=== PATIENT | female | born 1955 | race Caucasian/White ===

== ENCOUNTER → 2017-07-12 | Outpatient (REF) ==
[~2017-07-12] MED LIST: CEP500 PO; CEPH500T7 PO; FLUT16SP19; HYDR-317 PO; IBU200 PO; ICOS1CAP PO; LACT1CAP6 PO; LEVO88TA45 PO; MULT1TAB64 PO; PER PO; SIMV5TAB60 PO; TAM4 PO
[2017-07-12 09:02] LABS: LDL CHOLESTEROL 89 mg/dl
== END ==
DX: Z02.9 Encounter for administrative examinations, unspecified (principal)

== ENCOUNTER → 2017-07-12 | Outpatient (CLI) | payer OTHER | LOC: LAB 07:58 | PROVIDERS: ATTEND Family Medicine | DX: R53.83 Other fatigue (principal); F41.1 Generalized anxiety disorder; F43.9 Reaction to severe stress, unspecified | CPT/HCPCS: 82533 ==

== ENCOUNTER 2017-08-21 08:15 | Outpatient (RCR) | payer OTHER ==
--- NOTE | 2017-08-03 11:55 | PT INITIAL EVALUATION ---
MEDICAL DIAGNOSIS: low back pain with radiating pain down L LE TREATMENT DIAGNOSIS: same DATE OF ONSET: 07/20/17 SUBJECTIVE: Sofía Cifuentes presents to physical therapy with complaints of low back pain associated with radiating pain down her L LE. She reports that the pain is associated with numbness and tingling down into the L LE and end at the L knee. She reports that the pain started approximately 2 weeks ago due to increased sitting. She reports that she is required to sit from approximately 6 -7 hours per an 8 hour work day with an old work chair. She reports that the pain feels worse with sitting and bending and feels better with standing, walking, and lying. She rates her current pain to be 2-3/10 in the low back region with numbness and tingling going down the L LE into the knee. She reports that by the end of the day (after a lot of sitting) she rates her pain to be 9-10/10 with intensified pain going down the L LE. She reports normal gait and bladder. She denies any unexplained weight loss. Furthermore, she reports that she did not have any accident, imaging, or a recent surgery. Pain location is L 4-5 facet joints and described as achy. Pain scale is 3 on a ten point pain scale. REHAB PROBLEM LIST: Increased Pain Decreased ROM Decreased Strength Decreased Endurance Decreased Function PREVIOUS MEDICAL HISTORY: See EMR OCCUPATION: IMH: LAB OBJECTIVE: Posture: She demonstrates great posture since the back becomes worse with a slouched posture ROM: Trunk AROM: flexion: minimal restriction with end range pain. extension: NIL with end range pain. R/L sidegliding: moderate restriction with end range pain. Strength: L hip flexion: 4/5. R hip flexion: 5/5. B hip abduction, adduction, B knee flexion and extension, and B ankle DF and PF: 5/5 Palpation: TTP: L side: L4-5 facet joints Special Tests: Repeated extension in lying: strain during the test and abolished pain following the test. ASSESSMENT: Sofía will benefit from skilled physical therapy to address the listed impairments to improve function and QOL. Her provisional classification is a posterior derangement that responded well to extension based principles that has an excellent prognosis. Short Term Goals 1 week: Pt will be independent on her specific exercise and postural mechanics to improve function and QOL. 2 weeks: Pt will demonstrate centralized low back pain to improve function and QOL. 4 weeks: Pt will demonstrate abolished low back pain and return to prior level of function to improve function and QOL. Patient's Goals abolish low back pain PLAN: Patient to be seen for Manual Therapy/STM/MET Strengthening/condition Range of Motion Spinal Stabilization Work Hardening/Cond Stretching Neuromuscular Re-ed Closed Chain Program Posture/Body mechanics Home Exercise Program Therapeutic Activities 2x/Week for 4 Weeks If you have any questions, comments, or concerns about this report or plan, please contact me at . Thank you, Juwan Leal, PT, DPT MTDD
--- NOTE | 2017-08-21 08:45 | PT PLAN OF CARE ---
Physician: Neda Srinivasan DO Patient is being seen: 1-2x/week Therapist: Juwan Leal, PT, DPT Medical Diagnosis: low back pain with radiating pain down L LE Treatment Diagnosis: same Date of Onset: 07/20/17 Date of Initial Evaluation: 08/03/17 Date patient was last seen: 08/21/17 Number of treatments: 6 Number of cancellations/No shows: 0 INTERVENTIONS: Manual Therapy/STM/MET Strengthening/condition Range of Motion Spinal Stabilization Work Hardening/Cond Stretching Neuromuscular Re-ed Closed Chain Program Posture/Body mechanics Home Exercise Program Therapeutic Activities GOALS: 1 week: Pt will be independent on her specific exercise and postural mechanics to improve function and QOL. MET 2 weeks: Pt will demonstrate centralized low back pain to improve function and QOL. MET 4 weeks: Pt will demonstrate abolished low back pain and return to prior level of function to improve function and QOL. MET PATIENT'S GOAL: abolish low back pain Status of Patient's Goals: MET Patient Compliance: Excellent Prognosis: Excellent Reasons for continuing therapy: This is a discharge note for Sofía Cifuentes. She reports that she is doing well. She reports that her pain has completely resolved and has returned to prior level of function. She demonstrated full trunk AROM with normal end feels, return to prior level of function, and return to full core and B LE strength. She has met all of her goals. As a result, she will be discharged from formal PT to [facility]. Posture: She demonstrates great posture ROM: Trunk AROM: flexion: NIL with normal rang without pain. extension: NIL with normal end feel. R/L sidegliding: NIL with normal end feel. Strength: L hip flexion: 5/5. R hip flexion: 5/5. B hip abduction, adduction, B knee flexion and extension, and B ankle DF and PF: 5/5 Special Tests: Repeated extension in lying: strain during the test and abolished pain following the test. If you have any questions, please contact me at [phone]. Thank you, Juwan Leal, PT, DPT [facility]
== END 2017-08-21 15:04 | disposition home or self-care (01) ==
LOC: PT 08:15
PROVIDERS: ATTEND Family Medicine
DX: M54.5 Low back pain (principal)
CPT/HCPCS: 97161

== ENCOUNTER 2017-09-18 21:16 | Emergency (ER) | payer OTHER ==
[2017-09-18 21:19] VITALS: BP 142/89
[2017-09-18] MEDS ORDERED: SIMV-49 PO (21:24)
--- NOTE | 2017-09-18 21:27 | ER Report ---
History and Physical Time Seen By MD: 21:27 Hx. of Stated Complaint: CUT LEFT THUMB, HPI/ROS CHIEF COMPLAINT: Thumb laceration HISTORY OF PRESENT ILLNESS: 61-year-old female patient presents to emergency room with complaint of laceration to the left thumb. Patient states that she was cutting watermelon when the knife slipped and cut her thumb. Patient denies any numbness or tingling. She denies any weakness with thumb. Patient has not taken any medication for this. Patient is unsure of her last tetanus. Allergies: Coded Allergies: Sulfa (Sulfonamide Antibiotics) (Verified Allergy, Mild, Hives and itching , 09/18/17) Home Meds Active Scripts Cephalexin 500 Mg Tab (KEFLEX 500 MG TAB) 500 Mg Tablet, 500 MG PO Q6H, #18 TAB Prov:CONCEPCION LY 09/18/17 Reported Medications Simvastatin (SIMVASTATIN) 20 Mg Tablet, 20 MG PO HS, TAB 09/18/17 Multivitamin (MULTI VITAMIN DAILY) 1 Each Tablet, 1 EACH PO DAILY 04/16/15 Levothyroxine Sodium (LEVOTHYROXINE SODIUM) 88 Mcg Tablet, 88 MCG PO QDAY 04/16/15 Discontinued Reported Medications Lactobacillus Combination No.4 (PROBIOTIC) 1 Each Capsule, 1 EACH PO DAILY, CAPSULE 04/16/15 Icosapent Ethyl (VASCEPA) 1 Gm Capsule, 2 TAB PO DAILY, CAPSULE 04/16/15 Discontinued Scripts Fluticasone Prop 50 Mcg Ns (FLONASE 50 MCG NS) 16 Gm [place].susp, 2 SPRAYS NA QDAY for 30 Days, #1 BOT 6 Refills Prov:MAGGIE NUNO JR, MD 01/17/17 Past Medical/Surgical History Patient has a past medical history of hyperlipidemia, frequent UTI, cyst on finger, dislocated toe, back pain, hypothyroidism. Patient has surgical history of hysterectomy, tubal ligation, toe pinning. Reviewed Nurses Notes: Yes Hx Smoking: Yes (1PPD X 20 YRS) Smoking Status: Former Smoker Hx Substance Use Disorder: No Hx Alcohol Use: No Constitutional Vital Sign - Last 24 Hours 09/18/17 21:19 Pulse 65 Resp 14 B/P (MAP) 142/89 Pulse Ox 93 O2 Delivery Room Air Physical Exam General appearance: Alert no distress. Respiratory: Chest is non tender, lungs are clear to auscultation. Cardiac: Regular rate and rhythm. Skin: Patient has a laceration at the lateral proximal and of her left first digit. Patient has no signs of infection, bleeding is controlled at this time. DIFFERENTIAL DIAGNOSIS: After history and physical exam differential diagnosis was considered for laceration. Medical Decision Making ED Course/Re-evaluation ED Course Patient is admitted and examined, history and physical were obtained. Differential diagnoses were considered. On examination patient has a 0.5 cm laceration to the proximal lateral and of the first finger nail. There is no active bleeding at this time. The area was cleaned and repaired described below. Patient did receive a tetanus shot here. We will go ahead and discharge patient home. We will place her on Keflex as this is a dirty wound. She is follow-up with her primary care provider with any concerns. I informed her to leave the blue load until the glue itself came off. Patient verbalized understanding and agreement with plan. Procedure: Laceration repair with Dermabond Verbal consent was obtained from the patient. The 0.5 cm laceration on the left thumb. The wound was scrubbed and explored to its base with a gloved finger. There were no deep structures involved. No tendon injury was identified. The wound was repaired with Dermabond. The procedure was performed by myself. Decision to Disposition Date: September 18, 2017 Decision to Disposition Time: 21:53 Depart Departure Latest Vital Signs Vital Signs Date Time Temp Pulse Resp B/P (MAP) Pulse Ox O2 Delivery O2 Flow Rate FiO2 09/18/17 21:19 65 14 142/89 93 Room Air Impression: Primary Impression: Laceration Condition: Improved Disposition: HOME OR SELF-CARE Referrals: LAILA FAIR DO (PCP) New Scripts Cephalexin 500 Mg Tab (KEFLEX 500 MG TAB) 500 Mg Tablet 500 MG PO Q6H, #18 TAB Prov: CONCEPCION LY 09/18/17 Patient Instructions: Finger Laceration (ED) Additional Instructions: Follow up with your primary care provider in the next week with any concerns. Monitor for signs of infection; redness, swelling, heat, discharge, increasing pain or red streaking. Take Tylenol or Ibuprofen as needed for pain. Return to the ER with any concerns. Leave glue on and allow it to fall off on its own. CONCEPCION LY September 18, 2017 21:27
[2017-09-18] MEDS ORDERED: DIPHTH/TETANUS/ACEL. PERTUSSIS IM ONLY ONE (21:40)
[2017-09-18] MEDS ORDERED: OCTYL CYANOACRYLATE 1 APP APPL TP ONE (21:40)
[2017-09-18] MEDS ORDERED: CEPH500T7 PO (21:54)
[2017-09-18] MEDS ORDERED: CEPHALEXIN 500 MG CAP TH 2 CAP/BOTTLE PO ONE (21:55)
== END 2017-09-18 22:06 | disposition home or self-care (01) ==
LOC: ER 21:38
DX: S61.012A Laceration without foreign body of left thumb without damage to nail, initial encounter (principal); W26.0XXA Contact with knife, initial encounter
CPT/HCPCS: 90471; 90715; 99282

== ENCOUNTER → 2017-09-28 | Outpatient (CLI) | payer OTHER ==
[~2017-09-28] MED LIST changes: +SIMV-49 PO
[2017-09-28 09:15] LABS: PLATELET COUNT, AUTOMATED 239 K/uL (150-450)
== END ==
LOC: LAB 08:36
PROVIDERS: ATTEND Family Medicine
DX: R53.83 Other fatigue (principal)
CPT/HCPCS: 36415; 84443; 85025

== ENCOUNTER → 2018-02-12 | Outpatient (CLI) | payer OTHER ==
[~2018-02-12] MED LIST changes: +FLUT16SP19 NS
--- NOTE | 2018-02-12 13:48 | RADIOLOGY IMAGING REPORT ---
[place] [facility] [place] Sofía Cifuentes : 1955 MR: [id number] V: [id number] EXAM DATE: ORDERING PHYSICIAN: LAILA FAIR TECHNOLOGIST: Location: [facility] [place] Patient: Sofía Cifuentes : 1955 Visit/Account:[id number] Date of Sevice: 02/12/2018 BONE MINERAL DENSITY HISTORY: Osteopenia COMPARISON: DEXA examination of March 2013 FINDINGS: LUMBAR SPINE: Bone mineral density (BMD) measured from L1-L4 correlates with a Z-score of -0.5 and a T-score of -1. 8 which is osteopenia as defined by the World Health Organization. The corresponding risk of fractur e in the lumbar spine is 3-4 times compared with a young adult reference population. This value has decreased by 6.6% since the prior study. More than 5% change is considered significant. HIP: Bone mineral density (BMD) measured in the left total hip region correlates with a Z-score of 0.8 and a T-score of -0.1 which is normal as defined by the World Health Organization. The corresponding ri sk of fracture in the hip is not increased compared with a young adult reference population. This va lue has decreased by 4% since the prior study. More than 5% change is considered significant. Bone mineral density (BMD) measured in the left Femoral Neck region measures 1.013 g/cm2. T score is -0.2, normal. No evidence of increased risk. No change since prior exam IMPRESSION: 1. Lumbar spine: Osteopenia. There has been significant interval decrease in the bone mineral dens ity since the previous exam. 2. Left Total Hip: Normal. There has been no significant change in the bone mineral density since the previous exam. 3. Left Femoral Neck: Bone Mineral Density is 1.013 g/cm2. Normal The next DEXA scan of this patient should include the following sites: L1-L4 and left hip. FRAX? WHO Fracture Risk Assessment Tool link: <http://www.shef.ac.uk/FRAX/tool.jsp?locationValue=9> PLEASE NOTE: 1) The World Health Organization defines low BMD as follows: T-score Normal > -1 Osteopenia < -1 and > -2.5 Osteoporosis < -2.5 without fractures Established osteoporosis < -2.5 with fractures 2) In general, you may wish to consider: Diagnosis Treatment Follow-up DEXA Normal BMD Prevention 2-3 years Osteopenia Prevention/therapy 1-2 years Osteoporosis Therapy Yearly 3) Fracture risk estimated from the T-score is more accurate for vertebral fractures (often spontane ous) than for hip fractures. Report Dictated By: Syd Rodrigez MD at 02/12/2018 1:41 PM Report E-Signed By: Syd Rodrigez MD at 02/12/2018 1:44 PM WSN:[email or web address]
== END ==
LOC: RAD 07:10
PROVIDERS: ATTEND Family Medicine
DX: M85.80 Other specified disorders of bone density and structure, unspecified site (principal)
CPT/HCPCS: 77080

== ENCOUNTER → 2018-06-21 | Outpatient (REF) ==
[~2018-06-21] MED LIST changes: -SIMV5TAB60 PO; +SIMV5TAB69 PO
[2018-06-21 11:11] LABS: LDL CHOLESTEROL 102 mg/dl
== END ==
DX: Z02.9 Encounter for administrative examinations, unspecified (principal)

== ENCOUNTER 2018-08-22 00:30 | Day surgery (SDC) | payer OTHER ==
[~2018-08-22] VITALS: Ht 165.1 cm; Wt 63.5 kg
[~2018-08-22 00:30] MED LIST changes: +TOLT2TAB PO
[2018-08-22 07:40] VITALS: BP 149/95
[2018-08-22] MEDS ORDERED: LIDOCAINE/SOD BICARB 8.4% SYR ID ONE (08:10)
[2018-08-22] MEDS ORDERED: NORMOSOL R SOLN(*) 1000 ML BAG 1,000 ML IV PRN (08:10)
[2018-08-22] MEDS ORDERED: ceFAZolin(*) 2GM/D5W 50ML 50 ML IVPB ONE (08:10)
[2018-08-22] MEDS ORDERED: MIDAZOLAM 2 MG/2 ML VIAL ONE (08:46)
[2018-08-22] MEDS ORDERED: PROPOFOL EMUL(*) 10MG/ML 20 ML 60 ML ONE (08:54)
[2018-08-22] MEDS ORDERED: LIDOCAINE MPF 1% 5 ML VIAL ONE (09:00)
[2018-08-22] MEDS ORDERED: ROPIVACAINE 0.5% 20 ML VIAL ONE (09:00)
[2018-08-22] MEDS ORDERED: BACITRACIN OINT 0.9 GM PKT TP ONE (09:45)
[2018-08-22] MEDS ORDERED: BACITRACIN OINT 15 GM TUBE TP ONE (09:46)
[2018-08-22 10:01] VITALS: BP 104/67
[2018-08-22] MEDS ORDERED: TRAM-420 PO (10:16)
[2018-08-22] MEDS ORDERED: DOCU-416 PO (10:16)
--- NOTE | 2018-08-22 10:19 | Short(Outpt) Discharge Summary ---
Discharge Summary Reason for Hosp/Final Diag: (1) Ganglion cyst of right foot Status: Chronic Hospital Course & Plan: Recurrent right 2nd toe cyst removed without problems. Departure Discharge to: Home, Self Care Discharge Instructions Home Meds Active Scripts Docusate Sodium (COLACE) 100 Mg Capsule, 1 CAP PO BID, #30 CAP 0 Refills TAKE WITH A FULL GLASS OF WATER Prov:FRANCIA STOKES MD 08/22/18 Tramadol Hcl (TRAMADOL HCL) 50 Mg Tablet, 1 TAB PO Q4H PRN for PAIN, #20 TAB 0 Refills Prov:FRANCIA STOKES MD 08/22/18 Fluticasone Prop 50 Mcg Ns (FLONASE 50 MCG NS) 16 Gm [place].susp, 1 SPRAY NS BID PRN for ALLERGY SYMPTOMS for 90 Days, #3 BOT 3 Refills Prov:FRANCIA STOKES MD 07/12/18 Reported Medications Tolterodine Tartrate (TOLTERODINE TARTRATE) 2 Mg Tablet, 2 MG PO DAILY 08/13/18 Simvastatin (SIMVASTATIN) 20 Mg Tablet, 10 MG PO HS, TAB 09/18/17 Multivitamin (MULTI VITAMIN DAILY) 1 Each Tablet, 1 EACH PO DAILY 04/16/15 Levothyroxine Sodium (LEVOTHYROXINE SODIUM) 88 Mcg Tablet, 88 MCG PO QDAY 04/16/15 Follow up Referrals: General Surgery - 09/04/18 @ Surgery, General with FRANCIA STOKES MD You have a follow up appointment scheduled with Dr. Stokes on 09/04/18, at 3:30pm. Diet: Regular Activity: As Tolerated Special Instructions: Leave the band-aid in place until 08/24/18, then you can remove it and shower. Apply antibiotic ointment to the incision and sutures and apply a new band-aid and change this daily for 1 week. After 1 week, if the incision looks like it's healing without problems and there's no drainage, you can leave the incision open to air or you can keep it covered with a band-aid if you feel more comfortable with it covered, especially while wearing shoes. Don't immerse the incision until after the sutures are removed. FRANCIA STOKES MD Aug 22, 2018 10:19
--- NOTE | 2018-08-22 10:27 | Post Operative Progress Note ---
Post Operative Progress Note Date: Aug 22, 2018 Time: 10:20 Surgeon: Carson Dictation number: [id number] Anesthesia: TIVA by Dr. Xavier Pre-Op Diagnosis: Recurrent right 2nd toe cyst Post-Op Diagnosis: JOSE Findings: C/W dx Procedure(s): Excision of recurrent right 2nd toe cyst Specimen Removed:(May be N/A): Right 2nd toe cyst Complications: None Fluids: See anesthesia record Estimated Blood Loss: Minimal Date OP Note Dictated: Aug 22, 2018 Time OP Note Dictated: 10:21 FRANCIA STOKES MD Aug 22, 2018 10:26
[2018-08-22 10:30] VITALS: BP 102/81
[2018-08-22 10:44] VITALS: BP 145/74
[2018-08-22 10:47] VITALS: BP 134/78
--- NOTE | 2018-08-22 11:38 | OPERATIVE REPORT 1 ---
EVENT DATE: August 22, 2018 SURGEON: Berhane Byrd MD ANESTHESIOLOGIST: Melvin Xavier MD ANESTHESIA: TIVA. PREOPERATIVE DIAGNOSIS Recurrent left second toe cyst. POSTOPERATIVE DIAGNOSIS Recurrent left second toe cyst. PROCEDURE PERFORMED Excision of right second toe cyst. COMPLICATIONS None. CONDITION Stable. ESTIMATED BLOOD LOSS Minimal. SPECIMEN Right second toe cyst. TOURNIQUET TIME 12 minutes. INDICATIONS This is a 62-year old female who a couple of years ago I removed a cyst from the dorsum of her right second toe. This was done under local in the office and she did well but then within a year it had grown back. She was requesting to have it removed again. I consented her to do it in the operating room where I had better lighting and I could use magnification and a tourniquet, etc. to improve the chances that this will not come back. DESCRIPTION OF PROCEDURE Patient was brought to the operating room and placed upon the operating table. TIVA anesthesia was administered and prior to prep I performed a digital ring block with 1% without epinephrine of the second toe on the right foot. We then placed a tourniquet on the calf and prepped and draped her lower leg, ankle and foot and then a time-out was completed. I used an Esmarch wrap and exsanguinated her right foot and then inflated the tourniquet. I then injected 0.5% ropivacaine plain around her toe for longer term anesthesia. I then made a transversely oriented elliptical incision to encompass the cyst and then dissected through the dermis and subcutaneous tissue. I easily identified the neck of the cyst and cleaned this off and then suture ligated it with a 4-0 Vicryl suture. I then excised the cyst and passed it off the field. I then had the tourniquet turned down and controlled a couple of small bleeders with electrocautery and then closed the transverse incision with interrupted 3-0 Nylon sutures. Her skin was cleaned, dried and Bacitracin was applied to the incision and sutures followed by a Band-aid. She was then brought to the recovery room in good condition, having tolerated the procedure without any apparent problems. MIKI
== END 2018-08-22 11:08 | disposition home or self-care (01) ==
LOC: OR 00:30
PROVIDERS: ATTEND Surgery
DX: M67.472 Ganglion, left ankle and foot (principal); E03.9 Hypothyroidism, unspecified
CPT/HCPCS: 28092; 88304; C9399; J2001; J2250; J2704; J2795; J0690

== ENCOUNTER → 2018-08-29 | Outpatient (CLI) | payer OTHER ==
[~2018-08-29] MED LIST changes: +DOCU-416 PO; +TRAM-420 PO
== END ==
LOC: LAB 09:55
PROVIDERS: ATTEND Nurse Practitioner
DX: D22.9 Melanocytic nevi, unspecified (principal)
CPT/HCPCS: 88305